=== PATIENT | female | born 1975 | race Native Hawaiian/Other Pacific Islander ===

== ENCOUNTER 2024-03-22 11:30 | Emergency (ER) | payer OTHER, SELFPAY ==
[2024-03-22 11:36] VITALS: BP 170/102
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
[2024-03-22 11:59] LABS: % Basophils 0.5 % (0-2); % Eosinophils 1.1 % (0-6); % Immature Granulocytes 0.3 % (0-0.5); % Lymphocytes 31.7 % (20.5-51.1); % Monocytes 4.8 % (1.7-9.3); % Neutrophils 61.6 % (42.2-75.2); Absolute Eosinophils 0.1 10^3/uL (0-0.7); Absolute Monocytes 0.3 10^3/uL (0.1-0.6); Absolute Neutrophils 3.9 10^3/uL (1.4-6.5); Hematocrit 42.7 % (37.0-47.0); Mean Corp Hgb Conc. 35.1 g/dL (33.0-37.0); Mean Corpuscular Hgb 27.2 pg (27.0-31.0); Mean Corpuscular Volume 77.5 fL (81.0-99.0); Mean Platelet Volume 8.6 fL (7.4-10.4); Nucleated Red Blood Cells % 0 %; Platelet Count 403 10^3/uL (130-400); Red Blood Cell Count 5.51 10^6/uL (4.20-5.40); Red Cell Dist. Width 13.8 % (11.5-14.5); White Blood Cell Count 6.3 10^3/uL (4.8-10.8)
[2024-03-22 12:00] VITALS: BP 138/89
[2024-03-22 12:00] LABS: Carboxyhemoglobin 2.6 %
[2024-03-22] MEDS: NSS 500 IV (12:01)
[2024-03-22 12:04] LABS: Venous Blood Gas B.E. -0.2 mmol/L (-4 to +4); Venous Blood Gas HCO3 25.4 mmol/L (22-27); Venous Blood Gas O2 Sat % 92.1 %; Venous Blood Gas pCO2 44 mmHg (35-48); Venous Blood Gas pH 7.37 (7.32-7.43); Venous Blood Gas pO2 62 mmHg (30-50)
[2024-03-22 12:06] LABS: Venous Blood Gas O2 Therapy RA
[2024-03-22 12:13] LABS: HCG, Serum Qualitative Screen Negative
[2024-03-22 12:18] LABS: ALT (SGPT) 67 U/L (0-35); AST (SGOT) 43 U/L (14-36); Acetaminophen < 10 ug/ml (10-30); Albumin 4.8 g/dl (3.5-5.0); Alkaline Phosphatase 163 U/L (38-126); Blood Urea Nitrogen 9 mg/dl (7-17); Calcium 9.6 mg/dl (8.4-10.2); Carbon Dioxide 24 mmol/L (22-30); Chloride 106 mmol/L (98-107); Glucose 97 mg/dl (70-99); Potassium 4.3 mmol/L (3.5-5.1); Salicylate < 1.0 mg/dl (2.0-20.0); Sodium 143 mmol/L (135-145); Total Bilirubin 0.8 mg/dl (0.2-1.3); Total Protein 8.3 g/dl (6.3-8.2); eGFR > 60.00
[2024-03-22 12:21] LABS: Alcohol None Detected
[2024-03-22 12:58] LABS: COVID-19 Antigen Negative (Negative)
[2024-03-22 13:23] VITALS: BP 136/95
[2024-03-22] MEDS: MOTRIN 400 MG PO (13:54)
== END 2024-03-22 14:20 | disposition home or self-care (01) ==
LOC: EMR 11:30
PROVIDERS: EMERGENCY PHYSICIAN Emergency Medicine
DX: G43.909 Migraine, unspecified, not intractable, without status migrainosus (principal); Z11.52 Encounter for screening for COVID-19
CPT/HCPCS: 99285; 96374; 96375; 96361; 70450; 80053; 80143; 80179; 82077; 82375; 82805; 84703; 85025; 87811; 93005